=== PATIENT | female | born 1970 | race American Indian/Alaskan Native ===

== ENCOUNTER 2018-07-01 19:14 | Emergency (ER) | payer OTHER ==
[~2018-07-01] VITALS: Ht 170.2 cm; Wt 66.0 kg
[2018-07-01 20:37] LABS: BASOPHILS % 0.2 % (0.0-2.0); EOSINOPHILS % 0.8 % (0.0-5.0); HEMATOCRIT. 38.3 % (36.0-48.0); HEMOGLOBIN. 12.3 g/dL (12.0-16.0); MEAN CORPUSCULAR HEMOGLOBIN 27.4 pg (28.0-32.0); MEAN CORPUSCULAR VOLUME 85.1 fL (81.0-99.0); MEAN PLATELET VOLUME 7.7 fl (7.4-10.4); PLATELET 253 x1000/uL (130-400); RED CELL DISTRIBUTION WIDTH 12.6 % (11.6-14.6)
[2018-07-01 20:45] LABS: CHLORIDE 104 mEq/L (98-107)
[2018-07-01 20:54] LABS: ETHANOL BLOOD < 10 mg/dL
[2018-07-01] MEDS ORDERED: SODIUM CHLORIDE 0.9% 1,000 ML IV ONE (21:01)
[2018-07-01 21:08] LABS: CARBAMAZEPINE < 0.5 ug/mL (4-12)
[2018-07-01 21:18] LABS: PHENOBARBITAL < 2.1 ug/mL (15.0-40.0)
[2018-07-01 21:22] LABS: HCG SCREEN NEGATIVE
[2018-07-01] MEDS ORDERED: CARBAMAZEPINE 200MG/10ML UDC PO ONE (21:30)
[2018-07-01] MEDS: DIVALPROEX SODIUM 250MG ER TABLET PO NR (21:46)
[2018-07-01 22:48] VITALS: BP 135/80
[2018-07-01 23:15] LABS: CLARITY URINE CLEAR (CLEAR); COLOR URINE YELLOW (YELLOW); KETONES URINE NEGATIVE (NEGATIVE); LEUKOCYTE ESTERASE URINE NEGATIVE (NEGATIVE); NITRITE URINE NEGATIVE (NEGATIVE); OCCULT BLOOD URINE NEGATIVE (NEGATIVE); PROTEIN URINE NEGATIVE (NEGATIVE); SPECIFIC GRAVITY URINE 1.021 (1.005-1.030); UROBILINOGEN URINE 0.2 E.U./dL (0.2-1.0)
[2018-07-01 23:24] LABS: CANNABINOID URINE SCREEN NEGATIVE (NEGATIVE); PHENCYCLIDINE URINE SCREEN NEGATIVE (NEGATIVE)
[2018-07-01 23:25] LABS: *AMPHETAMINES SCREEN URINE NEGATIVE (NEGATIVE); *BARBITURATES SCREEN URINE NEGATIVE (NEGATIVE); *BENZODIAZEPINES SCREEN URINE NEGATIVE (NEGATIVE); *COCAINE SCREEN URINE NEGATIVE (NEGATIVE); METHADONE URINE SCREEN NEGATIVE (NEGATIVE); OPIATES URINE SCREEN NEGATIVE (NEGATIVE)
== END 2018-07-01 22:49 | disposition home or self-care (01) ==
LOC: ER 19:14
DX: G40.909 Epilepsy, unspecified, not intractable, without status epilepticus (principal); Z91.14 Patient's other noncompliance with medication regimen
CPT/HCPCS: 36415; 70450; 80053; 80156; 80165; 80184; 80185; 80305; 81003; 81025; 82962; 84703; 85025; 96360; 99284; G0482

== ENCOUNTER 2020-11-10 15:51 | Emergency (ER) | payer OTHER ==
[~2020-11-10] VITALS: Ht 165.1 cm; Wt 61.0 kg
[2020-11-10 16:21] VITALS: BP 137/77
[2020-11-10] MEDS ORDERED: SODIUM CHLORIDE 0.9% 1,000 ML IV ONE (16:30)
[2020-11-10 16:54] LABS: BASOPHILS % 0.3 % (0.0-2.0); LYMPHOCYTES % 31.6 % (20.0-50.0); MEAN CORPUSCULAR HEMOGLOBIN 27.4 pg (28.0-32.0); MEAN CORPUSCULAR VOLUME 84.2 fL (81.0-99.0); MEAN PLATELET VOLUME 7.8 fl (7.4-10.4); MONOCYTES % 8.4 % (2.0-8.0); NEUTROPHILS % 58.7 % (40.0-76.0); PLATELET 225 x1000/uL (130-400); RED BLOOD CELL COUNT 4.39 mill/uL (4.2-5.4); RED CELL DISTRIBUTION WIDTH 13.1 % (11.6-14.6)
[2020-11-10 17:00] LABS: CHLORIDE 110 mEq/L (98-107)
[2020-11-10 17:08] LABS: ETHANOL BLOOD < 10 mg/dL
== END 2020-11-10 17:20 | disposition left against medical advice (07) ==
LOC: ER 15:51
DX: R56.9 Unspecified convulsions (principal); Z91.14 Patient's other noncompliance with medication regimen
CPT/HCPCS: 36415; 71045; 80053; 80320; 83605; 85025; 99284; J7030; G0480